=== PATIENT | female | born 1990 | race Caucasian/White ===

== ENCOUNTER → 2016-07-02 | Outpatient (CLI) | payer MEDICAID, OTHER ==
[~2016-07-02] MED LIST: BUPR150T9 PO; CEFP500T4 PO; SULF1TAB35 PO; TRIA16.5 NS
--- NOTE | 2016-07-02 17:22 | Diagnostic Imaging Report ---
INDICATION: Evaluation for size and dates. TECHNIQUE: Multiple real-time grayscale images were obtained of the gravid uterus. CORRELATION STUDY: None. FINDINGS: Cervical length is 5.1 cm and appears closed. Fetus is currently in a breech presentation. Normal amount of amniotic fluid. Placenta is anterior and without previa. Biometrical measurements are as follows: Biparietal diameter 3.54 cm, age 17 weeks 0 days. Head circumference 13.82 cm, age 17 weeks 2 days. Abdominal circumference 10.94 cm, age 16 weeks 6 days. Femur length 2.36 cm, age 17 weeks 1 day. Sonographic estimated age: 17 weeks 1 day. Sonographic estimated date of delivery: December 09, 2016. heart rate: 144 BPM Estimated Weight: 176 gm (+/- 26 gm) LMP Percentile: 61% IMPRESSION: 1. Single intrauterine in a breech presentation. Sonographic estimated age of 17 weeks 1 day for an estimated date of delivery of December 09, 2016. Dictated by: Dictated on workstation # [id number]
== END ==
LOC: RAD 13:25
PROVIDERS: ATTEND Family Medicine
DX: Z34.82 Encounter for supervision of other normal pregnancy, second trimester (principal)
CPT/HCPCS: 76805

== ENCOUNTER → 2016-08-20 | Outpatient (CLI) | payer MEDICAID ==
--- NOTE | 2016-08-20 15:01 | Diagnostic Imaging Report ---
INDICATION: anatomical survey. TECHNIQUE: Multiple real-time grayscale images were obtained over the gravid uterus. COMPARISON: 07/02/2016. FINDINGS: Transabdominal sonographic evaluation of the gravid uterus was performed. Single live intrauterine at 24 weeks 4 days by sonographic measurements. Appropriate interval growth. presentation is transverse. Normal amniotic fluid index. Grade 1 placenta is located anteriorly with no placenta previa. heart rate measures 147 beats per minute. There was limited visualization of the entire spine due to positioning. Recommend short-term sonographic followup. Otherwise, there is good visualization of the kidneys, bladder, stomach, brain, four-chamber heart, three-vessel cord and insertion, and extremities. gender is male. Biometrical measurements are as follows: Biparietal 5.9 cm, age 24 weeks 1 days. Head circumference 22.7 cm, age 24 weeks 6 days. Abdominal circumference 20.0 cm, age 24 weeks 5 days. Femur length 4.3 cm, age 24 weeks 2 days. Sonographic estimate age: 24 weeks 4 days. Sonographic estimated date of delivery: 12-06-16. Estimated Weight: 702 gm (+/- 103 gm). LMP percentile: 58%. heart rate: 147 beats per minute. number: 1 of 1. IMPRESSION: 1. Single live intrauterine at 24 weeks 4 days by today's sonographic measurements. 2. Incomplete evaluation of the spine due to positioning. Recommend short-term sonographic followup. 3. The remainder of the anatomical survey appears within normal limits. Dictated by: Dictated on workstation # [id number]
== END ==
LOC: RAD 12:41
PROVIDERS: ATTEND Family Medicine
DX: Z34.82 Encounter for supervision of other normal pregnancy, second trimester (principal)
CPT/HCPCS: 76805

== ENCOUNTER → 2016-09-21 | Outpatient (CLI) | payer MEDICAID ==
--- NOTE | 2016-09-21 18:11 | Diagnostic Imaging Report ---
INDICATION: patient, previous limited anatomical survey on prior ultrasound 08/20/2016. FINDINGS: On the previous study, spine was not well visualized. Patient now presents for followup. Images of the spine appear sonographically unremarkable. Study is otherwise limited. Amniotic fluid is normal at 15 cm. heart rate is 139 beats per minute. IMPRESSION: Study performed to followup previous incomplete evaluation of survey. On today's study, spine appears unremarkable. Dictated by: Dictated on workstation # [id number]
== END ==
LOC: RAD 13:44
PROVIDERS: ATTEND Family Medicine
DX: Z36 Encounter for antenatal screening of mother (principal); Z3A.00 Weeks of gestation of pregnancy not specified
CPT/HCPCS: 76816

== ENCOUNTER → 2017-03-16 | Outpatient (CLI) | payer MEDICAID ==
--- NOTE | 2017-03-16 14:13 | Diagnostic Imaging Report ---
INDICATION: Fall. 3 views were obtained. FINDINGS: The alignment of the wrist is normal. There is no fracture or dislocation. Soft tissues are unremarkable. IMPRESSION: No acute fracture or dislocation. Dictated by: Dictated on workstation # [id number]
--- NOTE | 2017-03-16 14:22 | Diagnostic Imaging Report ---
Patient History: LEFT ARM PAIN. Fall while skating. Technique: 3 views of the left elbow Comparison: None FINDINGS: There is a large left elbow joint effusion. While no definitive displaced fracture is seen, presence of effusion suspicious for an intra-articular fracture. Subtle cortical offset may be present at the radial head on the oblique view, and this may represent a fracture in question. Otherwise, alignment appears normal. There is mild soft tissue swelling about the left elbow. The joint spaces are preserved. IMPRESSION: 1. Large left elbow joint effusion, concerning for intra-articular fracture. Subtle cortical irregularity at the radial head may represent the fracture in question. Dictated by: Dictated on workstation # [id number]
== END ==
LOC: RAD 13:36
PROVIDERS: ATTEND Nurse Practitioner Family
DX: M25.422 Effusion, left elbow (principal); M79.602 Pain in left arm; W17.89XA Other fall from one level to another, initial encounter
CPT/HCPCS: 73080; 73110

== ENCOUNTER 2017-05-15 10:27 | Emergency (ER) | payer MEDICAID ==
[~2017-05-15] VITALS: Ht 170.2 cm; Wt 76.2 kg
[2017-05-15 11:07] LABS: BASOPHILS % (AUTO) 0 % (0-10); EOSINOPHILS # (AUTO) 0.1 10^3/uL (0.0-0.3); EOSINOPHILS % (AUTO) 1 % (0-10); HEMATOCRIT 40 % (35-52); HEMOGLOBIN 13.6 G/DL (11.5-16.0); LYMPHOCYTES # (AUTO) 1.5 X 10^3 (1.0-4.0); LYMPHOCYTES % (AUTO) 20 % (12-44); MEAN CORPUSCULAR HEMOGLOBIN 31 PG (25-34); MEAN CORPUSCULAR HGB CONC 34 G/DL (32-36); MEAN CORPUSCULAR VOLUME 90 FL (80-99); MEAN PLATELET VOLUME 9.6 FL (7.4-10.4); MONOCYTES # (AUTO) 0.5 X 10^3 (0.0-1.0); MONOCYTES % (AUTO) 6 % (0-12); NEUTROPHILS # (AUTO) 5.2 X 10^3 (1.8-7.8); NEUTROPHILS % (AUTO) 72 % (42-75); PLATELET COUNT 270 10^3/uL (130-400); RED BLOOD COUNT 4.43 10^6/uL (4.35-5.85); RED CELL DISTRIBUTION WIDTH 12.8 % (10.0-14.5); WHITE BLOOD COUNT 7.2 10^3/uL (4.3-11.0)
--- NOTE | 2017-05-15 11:11 | ED Cardiac General ---
History of Present Illness General Chief Complaint: Chest Pain Stated Complaint: CP/SOB Nursing Triage Note: ARRIVED VIA AMB TO ROOM 04. COMPLAINS OF CHEST PAIN, PALPITAIONS, SOA FOR SEVERAL WEEKS ON AND OFF. DENIES ANXIETY. STATES IT STARTED WHEN SHE STARTED TAKING A MED TO INCREASE MILK PRODUCTION THAT SHE PROMPTLY STOPPED. VAGINAL 5 MONTHS AGO. Source: patient Exam Limitations: no limitations History of Present Illness Date Seen by Provider: May 15, 2017 Time Seen by Provider: 11:09 Initial Comments To ER with reports of intermittent chest heaviness, palpitations, shortness of breath, dizziness for about 2 weeks. This began after she started taking domperidone to increase milk production to breast-feed her 5-month-old. She promptly stopped medication when she noticed the side effects but the symptoms persist. They are not as intense as they initially were but last night he seemed to get worse. She's never had this before. Severity: moderate Prior CP/Workup: no prior chest pain NTG SL RATING OFFICER: No ASA po RATING OFFICER: No Allergies and Home Medications Allergies Coded Allergies: Penicillins (Unverified Allergy, Unknown, 04/29/15) Patient Home Medication List Home Medication List Reviewed: Yes Review of Systems Constitutional: see HPI EENTM: No Symptoms Reported Respiratory: No Symptoms Reported Cardiovascular: No Symptoms Reported Gastrointestinal: See HPI, Abdominal Pain Genitourinary: No Symptoms Reported Musculoskeletal: see HPI Skin: no symptoms reported Psychiatric/Neurological: No Symptoms Reported Endocrine: No Symptoms Reported Hematologic/Lymphatic: No Symptoms Reported Past Hsgpour-Rklqbu-Houkgk Hx Patient Social History Alcohol Use: Denies Use Recreational Drug Use: No Smoking Status: Never a Smoker Recent Foreign Travel: No Contact w/Someone Who Travel: No Recent Infectious Disease Expo: No Immunizations Up To Date Tetanus Booster (TDap): More than 5yrs PED Vaccines UTD: Yes Surgeries History of Surgeries: No Respiratory History of Respiratory Disorde: No Cardiovascular History of Cardiac Disorders: No Neurological History of Neurological Disord: No Reproductive System Hx Reproductive Disorders: No Sexually Transmitted Disease: No HIV/AIDS: No Female Reproductive Disorders: Denies Genitourinary History of Genitourinary Disor: No Gastrointestinal History of Gastrointestinal Di: No Musculoskeletal History of Musculoskeletal Dis: No Endocrine History of Endocrine Disorders: No HEENT History of HEENT Disorders: No Cancer History of Cancer: No Did You Recieve Any Treatments: No Psychosocial History of Psychiatric Problem: Yes Behavioral Health Disorders: Depression Integumentary History of Skin or Integumenta: No Blood Transfusions History of Blood Disorders: No Adverse Reaction to a Blood Tr: No Physical Exam Vital Signs Vital Signs - First Documented 05/15/17 10:30 Temp 98.0 Pulse 106 Resp 18 B/P (MAP) 142/91 (108) Pulse Ox 100 Capillary Refill : Less Than 3 Seconds General Appearance: No Apparent Distress, WD/WN HEENT: PERRL/EOMI, TMs Normal Neck: Full Range of Motion, Normal Inspection Respiratory: No Accessory Muscle Use, No Respiratory Distress Cardiovascular: Regular Rate, Rhythm, Normal Peripheral Pulses Gastrointestinal: Normal Bowel Sounds, Non Tender, Soft Extremity: Normal Capillary Refill, Normal Inspection Neurologic/Psychiatric: Alert, Oriented x3, No Motor/Sensory Deficits Skin: Normal Color, Warm/Dry Other comments EKG shows normal sinus rhythm at 92 without ectopy, normal intervals, no ST segment changes. Progress/Results/Core Measures Results/Orders Lab Results Laboratory Tests Test 05/15/17 10:45 05/15/17 11:05 05/15/17 11:25 Range/Units White Blood Count 7.2 4.3-11.0 10^3/uL Red Blood Count 4.43 4.35-5.85 10^6/uL Hemoglobin 13.6 11.5-16.0 G/DL Hematocrit 40 35-52 % Mean Corpuscular Volume 90 80-99 FL Mean Corpuscular Hemoglobin 31 25-34 PG Mean Corpuscular Hemoglobin Concent 34 32-36 G/DL Red Cell Distribution Width 12.8 10.0-14.5 % Platelet Count 270 130-400 10^3/uL Mean Platelet Volume 9.6 7.4-10.4 FL Neutrophils (%) (Auto) 72 42-75 % Lymphocytes (%) (Auto) 20 12-44 % Monocytes (%) (Auto) 6 0-12 % Eosinophils (%) (Auto) 1 0-10 % Basophils (%) (Auto) 0 0-10 % Neutrophils # (Auto) 5.2 1.8-7.8 X 10^3 Lymphocytes # (Auto) 1.5 1.0-4.0 X 10^3 Monocytes # (Auto) 0.5 0.0-1.0 X 10^3 Eosinophils # (Auto) 0.1 0.0-0.3 10^3/uL Basophils # (Auto) 0.0 0.0-0.1 10^3/uL Sodium Level 141 135-145 MMOL/L Potassium Level 4.0 3.6-5.0 MMOL/L Chloride Level 106 98-107 MMOL/L Carbon Dioxide Level 28 21-32 MMOL/L Anion Gap 7 5-14 MMOL/L Blood Urea Nitrogen 9 7-18 MG/DL Creatinine 0.85 0.60-1.30 MG/DL Estimat Glomerular Filtration Rate > 60 BUN/Creatinine Ratio 11 Glucose Level 81 70-105 MG/DL Calcium Level 9.9 8.5-10.1 MG/DL Total Bilirubin 1.0 0.1-1.0 MG/DL Aspartate Amino Transf (AST/SGOT) 21 5-34 U/L Alanine Aminotransferase (ALT/SGPT) 29 0-55 U/L Alkaline Phosphatase 64 40-136 U/L Total Protein 8.5 H 6.4-8.2 GM/DL Albumin 4.9 H 3.2-4.5 GM/DL Thyroid Stimulating Hormone (TSH) 1.75 0.35-4.94 UIU/ML Free Thyroxine 1.10 0.70-1.48 NG/DL D-Dimer < 0.27 0.00-0.49 UG/ML Urine Color YELLOW Urine Clarity CLEAR Urine pH 8 5-9 Urine Specific [place] 1.010 L 1.016-1.022 Urine Protein NEGATIVE NEGATIVE Urine Glucose (UA) NEGATIVE NEGATIVE Urine Ketones NEGATIVE NEGATIVE Urine Nitrite NEGATIVE NEGATIVE Urine Bilirubin NEGATIVE NEGATIVE Urine Urobilinogen NORMAL NORMAL MG/DL Urine Leukocyte Esterase NEGATIVE NEGATIVE Urine RBC (Auto) NEGATIVE NEGATIVE Urine RBC NONE /HPF Urine WBC RARE /HPF Urine Squamous Epithelial Cells 2-5 /HPF Urine Crystals NONE /LPF Urine Bacteria NEGATIVE /HPF Urine Casts NONE /LPF Urine Mucus NEGATIVE /LPF Urine Culture Indicated NO Urine Opiates Screen NEGATIVE NEGATIVE Urine Oxycodone Screen NEGATIVE NEGATIVE Urine Methadone Screen NEGATIVE NEGATIVE Urine Propoxyphene Screen NEGATIVE NEGATIVE Urine Barbiturates Screen NEGATIVE NEGATIVE Ur Tricyclic Antidepressants Screen NEGATIVE NEGATIVE Urine Phencyclidine Screen NEGATIVE NEGATIVE Urine Amphetamines Screen NEGATIVE NEGATIVE Urine Methamphetamines Screen NEGATIVE NEGATIVE Urine Benzodiazepines Screen NEGATIVE NEGATIVE Urine Cocaine Screen NEGATIVE NEGATIVE Urine Cannabinoids Screen NEGATIVE NEGATIVE My Orders Orders - MINISTERIO REZA BACK PADDER Cbc With Automated Diff (05/15/17 11:00) Comprehensive Metabolic Panel (05/15/17 11:00) Continuous Ekg Monitoring (05/15/17 11:00) Fibrin Degradation Products (05/15/17 11:00) Chest Pa/Lat (2 View) (05/15/17 11:00) Ua Culture If Indicated (05/15/17 11:00) Drug Screen Stat (Urine) (05/15/17 11:00) Thyroid Stimulating Hormone (05/15/17 11:00) Free T4 (Free Thyroxine) (05/15/17 11:00) Vital Signs/I&O Vital Sign - Last 12Hours 05/15/17 10:30 Temp 98.0 Pulse 106 Resp 18 B/P (MAP) 142/91 (108) Pulse Ox 100 Blood Pressure Mean: 108 Departure Communication (Admissions) Progress Notes I will give the patient an order for outpatient Holter monitor Impression Impression: Primary Impression: Palpitations Disposition: 01 HOME, SELF-CARE Condition: Stable Departure-Patient Inst. Decision time for Depature: 12:22 Referrals: CANDE IQBAL MD (PCP/Family) Primary Care Physician Patient Instructions: Palpitations Add. Discharge Instructions: 1. Go to outpatient registration to register to get the Holter monitor applied and they will directly on where to go to get the Holter monitor. 2. Follow-up with your doctor next week 3. Return to ER for any concerns All discharge instructions reviewed with patient and/or family. Voiced understanding. Copy Copies To 1: CANDE IQBAL MD, PETER J APRN May 15, 2017 11:11
[2017-05-15 11:22] LABS: ALANINE AMINOTRANSFERASE 29 U/L (0-55); ALBUMIN 4.9 GM/DL (3.2-4.5); ALKALINE PHOSPHATASE 64 U/L (40-136); BUN/CREATININE RATIO 11; CALCIUM 9.9 MG/DL (8.5-10.1); CARBON DIOXIDE 28 MMOL/L (21-32); CHLORIDE 106 MMOL/L (98-107); CREATININE SERUM 0.85 MG/DL (0.60-1.30); GFR ESTIMATED > 60; GLUCOSE 81 MG/DL (70-105); SODIUM 141 MMOL/L (135-145); TOTAL PROTEIN 8.5 GM/DL (6.4-8.2)
[2017-05-15 11:34] LABS: BILIRUBIN,URINE NEGATIVE (NEGATIVE); CLARITY,URINE CLEAR; COLOR,URINE YELLOW; GLUCOSE, URINE (UA) NEGATIVE (NEGATIVE); KETONES,URINE NEGATIVE (NEGATIVE); LEUKOCYTE ESTERASE ,URINE NEGATIVE (NEGATIVE); NITRITE,URINE NEGATIVE (NEGATIVE); PH,URINE 8 (5-9); PROTEIN,URINE NEGATIVE (NEGATIVE); UROBILINOGEN,URINE NORMAL (NORMAL)
--- NOTE | 2017-05-15 11:43 | Diagnostic Imaging Report ---
INDICATION: Chest pain and palpitations. TIME OF EXAM: 11:52 a.m. COMPARISON: No prior studies are available for comparison. FINDINGS: The heart size is normal. The pulmonary vascularity is unremarkable. The lungs are clear. No infiltrate, effusion or pneumothorax is detected. IMPRESSION: No acute cardiopulmonary process is detected. Dictated by: Dictated on workstation # [id number]
[2017-05-15 11:45] LABS: AMPHETAMINE SCREEN, URINE NEGATIVE (NEGATIVE); BACTERIA,URINE NEGATIVE /HPF; BARBITURATE SCREEN URINE NEGATIVE (NEGATIVE); BENZODIAZEPINES SCREEN URINE NEGATIVE (NEGATIVE); CANNABINOID SCREEN, URINE NEGATIVE (NEGATIVE); COCAINE SCREEN URINE NEGATIVE (NEGATIVE); METHADONE STAT NEGATIVE (NEGATIVE); METHAMPHETAMINE SCREEN URINE S NEGATIVE (NEGATIVE); OPIATE SCREEN URINE NEGATIVE (NEGATIVE); OXYCODONE STAT NEGATIVE (NEGATIVE); PROPOXYPHENE STAT NEGATIVE (NEGATIVE); TRICYCLIC ANTIDEPRESSANTS SCRE NEGATIVE (NEGATIVE); WBC,URINE RARE /HPF
[2017-05-15 12:32] VITALS: BP 110/73
== END 2017-05-15 12:32 | disposition home or self-care (01) ==
LOC: EDUNIT# 10:27 → ER 10:28
DX: R00.2 Palpitations (principal); F32.9 Major depressive disorder, single episode, unspecified; Z88.0 Allergy status to penicillin
CPT/HCPCS: 36415; 71046; 80053; 80306; 81000; 84439; 84443; 84703; 85025; 85379; 93005

== ENCOUNTER 2017-05-15 12:53 | Outpatient (RCR) | payer MEDICAID | END 2017-08-13 | disposition home or self-care (01) | LOC: CARD 12:53 | PROVIDERS: ATTEND Nurse Practitioner Family | DX: R00.2 Palpitations (principal) ==

== ENCOUNTER → 2019-08-25 | Outpatient (CLI) | payer MEDICAID ==
--- NOTE | 2019-08-25 16:17 | Diagnostic Imaging Report ---
INDICATION: Leg pain EXAM: Noninvasive study performed including ankle-brachial indices and segmental pressures. FINDINGS: Ankle-brachial indices were 1.13 on the right for posterior tibial and 1.01 for dorsalis pedis. The left, the indices were 1.13 for posterior tibial artery and 1.16 for dorsalis pedis. Segmental pressures showed symmetric waveforms. IMPRESSION: Normal study with no significant decrease in ankle-brachial indices. Dictated by: Dictated on workstation # [id number]
== END ==
LOC: RAD 13:24
PROVIDERS: ATTEND Family Medicine
DX: M79.604 Pain in right leg (principal); M79.605 Pain in left leg
CPT/HCPCS: 93922

== ENCOUNTER → 2020-03-25 | Outpatient (CLI) | payer MEDICAID ==
--- NOTE | 2020-03-28 08:10 | Diagnostic Imaging Report ---
INDICATION: anatomy survey and twin . TECHNIQUE: Multiple real-time grayscale images were obtained over the gravid uterus. COMPARISON: None available FINDINGS: The cervix measures approximately 4.4 cm in length. Twin gestation is noted with a membrane between the fetuses. The placenta is posteriorly positioned. Fetus A Biometrical measurements are as follows: Biparietal 4.57 cm, age 19 weeks 6 days. Head circumference 16.96 cm, age 19 weeks 5 days. Abdominal circumference 14.51 cm, age 19 weeks 6 days. Femur length 3.37 cm, age 20 weeks 4 days. Sonographic estimate age: 20 weeks 0 days. Sonographic estimated date of delivery: 08/12/20. Estimated Weight: 332 gm (+/- 49 gm). LMP percentile: 60%. heart rate: 169 beats per minute. number: 1 of 2. Fetus is in breech presentation and located on maternal left. The anatomy survey for baby A shows the following structures are normal: Stomach, urinary bladder, three-vessel cord, kidneys, umbilical cord insertion, four-chamber heart, spine and intracranial structures. Extremities are grossly normal. Fetus B Biometrical measurements are as follows: Biparietal 4.77 cm, age 20 weeks 3 days. Head circumference 17.84 cm, age 20 weeks 3 days. Abdominal circumference 14.17 cm, age 19 weeks 4 days. Femur length 3.22 cm, age 20 weeks 1 days. Sonographic estimate age: 20 weeks 1 days. Sonographic estimated date of delivery: 08/11/2020. Estimated Weight: 316 gm (+/- 46 gm). LMP percentile: 44%. heart rate: 135 beats per minute. number: 2 of 2. Fetus B is in cephalic presentation located to maternal right. The anatomy survey for baby B shows the following structures are normal: Stomach, urinary bladder, three-vessel cord, umbilical cord insertion, kidneys, intracranial structures, four-chamber heart, spine and extremities. IMPRESSION: 1. Live twin gestation with both fetuses having normal anatomy survey. 2. The fetuses are symmetric in size. Dictated by: Dictated on workstation # [id number]
== END ==
LOC: RAD 14:34
PROVIDERS: ATTEND Obstetrics & Gynecology
DX: O30.041 Twin pregnancy, dichorionic/diamniotic, first trimester (principal); Z3A.20 20 weeks gestation of pregnancy
CPT/HCPCS: 76805; 76810

== ENCOUNTER → 2020-07-05 | Outpatient (CLI) | payer MEDICAID | LOC: CARD 13:00 | PROVIDERS: ATTEND Internal Medicine Cardiovascular Disease | DX: O30.003 Twin pregnancy, unspecified number of placenta and unspecified number of amniotic sacs, third trimester (principal); O26.893 Other specified pregnancy related conditions, third trimester; R00.2 Palpitations; Z3A.34 34 weeks gestation of pregnancy | CPT/HCPCS: 93225; 93226; 93306 ==

== ENCOUNTER 2020-07-22 05:39 | Outpatient (CLI) | payer MEDICAID ==
[~2020-07-22] VITALS: Ht 167.7 cm; Wt 90.5 kg
[2020-07-22] MEDS ORDERED: PNV1TABL9 PO (10:20)
[2020-07-22] MEDS ORDERED: NF-VITD400 PO (10:20)
== END 2020-07-22 10:32 | disposition home or self-care (01) ==
LOC: PREOP 05:39
PROVIDERS: ATTEND Obstetrics & Gynecology
DX: Z01.818 Encounter for other preprocedural examination (principal)

== ENCOUNTER 2020-07-25 07:14 | Inpatient (IN) | payer MEDICAID ==
[2020-07-25] VITALS (8 sets, daily range): BP systolic 96–121; BP diastolic 54–75
[~2020-07-25 07:14] MED LIST changes: +NF-VITD400 PO; +PNV1TABL9 PO
[2020-07-25] MEDS ORDERED: LACTATED RINGERS 1,000 ML IV ONE (07:44)
[2020-07-25] MEDS ORDERED: LACTATED RINGERS 1,000 ML IV SCH ×2 (08:00)
[2020-07-25] MEDS ORDERED: CITRIC ACID/SOB CIT (BICITRA) 30 ML UDC PO ONE (08:00)
[2020-07-25] MEDS ORDERED: ceFAZolin 2 GM IV Premixed 50 ML IV ONE (08:00)
[2020-07-25] MEDS ORDERED: METOCLOPRAMIDE INJ 10 MG/2 ML (REGLAN) IV ONE (08:00)
[2020-07-25] MEDS ORDERED: FAMOTIDINE 20MG/2ML IV (PEPCID) IV ONE (08:00)
[2020-07-25 08:16] LABS: BASOPHILS % (AUTO) 0 % (0-10); EOSINOPHILS % (AUTO) 0 % (0-10); HEMATOCRIT 36 % (35-52); HEMOGLOBIN 12.7 g/dL (11.5-16.0); LYMPHOCYTES # (AUTO) 1.2 10^3/uL (1.0-4.0); LYMPHOCYTES % (AUTO) 14 % (12-44); MEAN CORPUSCULAR HEMOGLOBIN 34 pg (25-34); MEAN CORPUSCULAR HGB CONC 35 g/dL (32-36); MEAN CORPUSCULAR VOLUME 97 fL (80-99); MEAN PLATELET VOLUME 10.6 fL (9.0-12.2); MONOCYTES # (AUTO) 0.5 10^3/uL (0.0-1.0); MONOCYTES % (AUTO) 6 % (0-12); NEUTROPHILS # (AUTO) 6.7 10^3/uL (1.8-7.8); NEUTROPHILS % (AUTO) 79 % (42-75); PLATELET COUNT 137 10^3/uL (130-400); WHITE BLOOD COUNT 8.5 10^3/uL (4.3-11.0)
--- NOTE | 2020-07-25 08:23 | History & Physical-OB ---
OB - Chief Complaint & HPI Date/Time Date of Admission: Date of Admission: July 25, 2020 at 07:14 Date seen by a Provider: July 25, 2020 Time Seen by a Provider: 08:00 Chief Complaint/History OB-Reason for Admission/Chief: Section Hx : 4 Hx Para: 2 Expected Date of Delivery: Aug 13, 2020 Indication for : malpresentation Admission Nurse Assessment Rev: Yes History of Labs AB pos Antibody neg RI RPR NR HIV NR HBsAg NR GC neg GBS neg Allergies and Home Medications Allergies Coded Allergies: Penicillins (Unverified Allergy, Unknown, 04/29/15) Home Medications Pnv Cmb#21/Iron/Folic Acid 1 Each Tablet, 1 EACH PO DAILY, (Reported) Vitamin D 10 Mcg Tablet, 400 MCG PO DAILY, (Reported) Patient Home Medication List Home Medication List Reviewed: Yes OB - History Hx of Present Care: Yes Ultrasounds: Normal mid trimester US Obstetrical Complications: None Medical Complications: None Delivery History Hx Blood Disorders: No Adverse Rxn to Tranfusion: No Patient Past Medical History n/a Social History/Family History 2nd Hand Smoke Exposure: No Immunizations Hepatitis A: No Hepatitis B: No Tetanus Booster (TDap): More than 5yrs OB - Admission Exam Physical Exam HEENT: NCAT Heart: Rhythm Normal Lungs: Clear Abdomen: Gravid Extremities: Normal Reflexes: Normal Heart Rate: 130's Accelerations: Accelerations Present Decelerations: No Decelerations Short Term Variability: Present 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
[2020-07-25] MEDS ORDERED: OXYTOCIN PRE-MIX DRIP 500 ML IV ONE (08:26)
[2020-07-25] MEDS ORDERED: fentaNYL INJ 100 MCG/2 ML AMP ONE (08:26)
[2020-07-25] MEDS ORDERED: TETANUS,DIPTH,PERTUSS P/F (BOOSTRIX) 0.5 ML VIAL IM SCH (08:30)
[2020-07-25] MEDS ORDERED: OXYTOCIN PRE-MIX DRIP 500 ML IV SCH (08:30)
[2020-07-25] MEDS ORDERED: ONDANSETRON 4 MG/2 ML (SDV) Z0FRAN IVP PRN ×2 (08:30→11:00)
[2020-07-25] MEDS ORDERED: MEASLES,MUMPS,RUBELLA 1 EA INJ SC SCH (08:30)
[2020-07-25] MEDS ORDERED: BUPIVACAINE 0.5% 30 ML (SENSORCAINE) VIAL ONE ×2 (09:12→10:05)
[2020-07-25] MEDS ORDERED: LIDOCAINE 1% INJ 20 ML 20 ML VIAL ONE (09:12)
[2020-07-25] MEDS ORDERED: PHENYLEPHRINE 100 MCG/ML 10 ML (ANESTHESIA) SYR ONE (10:08)
[2020-07-25] MEDS: KETOROLAC 30 MG/ML VIAL IV SCH ×3 (10:21→22:48)
[2020-07-25] MEDS ORDERED: HYDROmorphone 2 MG/ML VIAL (DILAUDID) IV ONE (11:00)
[2020-07-25] MEDS ORDERED: morphine INJ 10 MG/ML 1ML (SYR OR VIAL) IVP ONE (11:00)
[2020-07-25] MEDS: HYDROcodone/APAP 5 MG/325 MG (LORTAB) TAB PO PRN ×3 (13:33→22:55)
[2020-07-25] MEDS ORDERED: CATHETER FLUSH 10 ML SYR IV SCH (14:00)
--- NOTE | 2020-07-25 17:06 | OPERATIVE REPORT ---
DATE OF SERVICE: PREOPERATIVE DIAGNOSES: 1. A 30-year-old G4, P2 at 37 weeks and 2 days gestation. 2. Malpresentation of di-di twin gestation. POSTOPERATIVE DIAGNOSES: 1. A 30-year-old G4, P2 at 37 weeks and 2 days gestation. 2. Malpresentation of di-di twin gestation. PROCEDURE PERFORMED: Primary low transverse section. SURGEON: Hayder Contreras DO. ANESTHESIA: Spinal. ESTIMATED BLOOD LOSS: 800 mL. URINE OUTPUT: 150 mL clear at the end of the procedure. FLUIDS: 1500 mL of lactated Ringer's solution. FINDINGS: Two live female infants, baby A, Apgars of 8 and 8 and weight of 6 pounds 8 ounces. Baby B, Apgars of 7 and 9, weight of 6 pounds 4 ounces. Baby A was in the oblique presentation on maternal right hip. Baby B was left transverse spine down. Grossly normal appearing uterus, bilateral fallopian tubes and ovaries. SPECIMEN SENT: Placenta. INDICATIONS FOR PROCEDURE: This 30-year-old female is a patient, who had sought care in my office, it was uncomplicated with the exception of diamniotic dichorionic twin gestation. Throughout her , we discussed vaginal delivery if vertex presentation was noted; however, at the end of the , there were changes in the position including last week where baby A was breech. I discussed with the patient proceeding with primary , which was scheduled for 37 weeks due to increased risk of preeclampsia and hemorrhage as 39 weeks approached. Therefore, we scheduled for 37 weeks. Risks of primary was reviewed with the patient and her preoperative appointment including risk of bleeding, infection, damage to surrounding structures including, but not limited to bowel, bladder, or kidneys, possible need for reoperation, postoperative complications that may occur, and recovery timeframe from the procedure, hospital stay, risk from anesthesia and even . After everything was discussed with the patient in detail, consent was obtained in the preoperative area, the patient was taken to the operating room. OPERATIVE REPORT IN DETAIL: Once in the operating room and spinal analgesia was found to be adequate, she was placed in a supine position with leftward tilt and prepped and draped in a normal sterile fashion. A timeout was performed and anesthesia was tested. There was some incomplete block of the spinal and therefore a mix of 50% 0.25% Marcaine and 50% 2% lidocaine was injected along the skin margins of the fascia on the right side of the incision to control the pain during the procedure, after which anesthesia was found to be adequate. A timeout was performed. A Pfannenstiel skin incision was then made with a knife and carried down to underlying fascia using Bovie cautery. The fascial incision was extended laterally using Bovie cautery. Superior aspect of the fascial incision was then grasped with Aissatou clamps, tented upward and dissected off the underlying rectus muscles. The inferior aspect of the fascial incision was then grasped with Aissatou clamps, tented up and dissected off the underlying rectus muscles. Rectus muscles were then dissected down the midline using Pritchett scissors, which exposed the peritoneum, which I entered bluntly and extended using blunt traction. Otoniel ring retractor was placed in the peritoneal incision, which offers excellent lateral sidewall retraction. I identified the lower uterine segment, which was found to be thinned out. I made a low transverse incision to the vesicouterine peritoneum and bluntly dissected off the lower uterine segment, creating a bladder flap. I then proceeded with my myotomy until membranes were visualized, at which point, I extended uterine incision laterally and superiorly using bandage scissors. Amniotomy was performed using Allis clamp. Clear fluid was noted on fetus A, which was found in the right oblique presentation, head is elevated up the incision where it delivered incision. Nares and oropharynx were bulb suctioned. Anterior and posterior shoulders were delivered. The was then brought on to the operative field. Cord was doubly clamped and cut and was handed off to , who was present for delivery. Cord from fetus A was marked with a single cord clamp. I then performed amniotomy on the second membrane, clear fluid was noted from this membrane as well. The was found in the left transverse presentation. I brought in the head down to the pelvis where it delivered through the incision. Nares and oropharynx were bulb suctioned. Anterior and posterior shoulders were delivered. Infant was then brought to the operative field. The cord was doubly clamped and cut and was handed off to Dr. Estrada, who was present for delivery. This cord was marked with two cord clamps. The placenta was then removed as a whole and sent to pathology for permanent section. The uterus was then exteriorized and cleared of all endometrial clots and debris and Pitocin was initiated to facilitate uterine contraction. Uterine fundus became firmer by manual massage. I then proceeded with closing the uterine incision using 0 Vicryl suture in a running locked fashion. Second layer of imbricating 0 Monocryl was placed. Excellent hemostasis was noted after doing this. I then placed the uterus back in the pelvis and copiously irrigated the pelvis using normal saline. Once again, there was no active bleeding noted from any of my dissection planes. I placed Interceed antiadhesive over my low transverse incision. I removed the Otoniel ring retractor and proceeded with closing the peritoneum using 3-0 Vicryl suture in running fashion. Rectus muscles were reapproximated using 3-0 Vicryl suture in an interrupted fashion. The fascia was reapproximated using 0 Vicryl suture in running fashion. Subcutaneous tissue was reapproximated using 3-0 plain interrupted subcutaneous tissue and skin reapproximated using 4-0 Monocryl running subcuticular. Dermabond was applied to the incision and sterile dressing with adhesive white tape. The patient tolerated the procedure well and sent to recovery area in stable condition. Lap and sponge counts were correct at the end of the procedure. Instrument counts correct as well. Two grams of Ancef given preoperatively for infection prophylaxis. Job ID: [id number] DocumentID: [id number] Dictated Date: 07/25/2020 10:03:51 Wrist Liner Date: 07/25/2020 17:05:09 Dictated By: DO ADOLFO HYMAN
[2020-07-25] MEDS: DOCUSATE SODIUM 100 MG (COLACE) CAP PO SCH (19:53)
[2020-07-26] VITALS: BP 97/55
[2020-07-26] MEDS: KETOROLAC 30 MG/ML VIAL IV SCH (04:21)
[2020-07-26 04:22] VITALS: BP 101/54
[2020-07-26] MEDS: HYDROcodone/APAP 5 MG/325 MG (LORTAB) TAB PO PRN ×4 (04:22→20:23)
[2020-07-26 06:09] LABS: BASOPHILS % (AUTO) 0 % (0-10); EOSINOPHILS % (AUTO) 0 % (0-10); HEMATOCRIT 26 % (35-52); HEMOGLOBIN 9.1 g/dL (11.5-16.0); LYMPHOCYTES # (AUTO) 1.2 10^3/uL (1.0-4.0); LYMPHOCYTES % (AUTO) 12 % (12-44); MEAN CORPUSCULAR HEMOGLOBIN 35 pg (25-34); MEAN CORPUSCULAR HGB CONC 35 g/dL (32-36); MEAN CORPUSCULAR VOLUME 99 fL (80-99); MEAN PLATELET VOLUME 10.8 fL (9.0-12.2); MONOCYTES # (AUTO) 0.6 10^3/uL (0.0-1.0); MONOCYTES % (AUTO) 6 % (0-12); NEUTROPHILS # (AUTO) 8.5 10^3/uL (1.8-7.8); NEUTROPHILS % (AUTO) 81 % (42-75); PLATELET COUNT 115 10^3/uL (130-400); WHITE BLOOD COUNT 10.5 10^3/uL (4.3-11.0)
[2020-07-26] MEDS ORDERED: HYDROmorphone 2 MG/ML VIAL (DILAUDID) IV ONE (07:15)
[2020-07-26 08:00] VITALS: BP 98/57
--- NOTE | 2020-07-26 08:06 | Postpartum Progress Note ---
Note Note Day # 1 Subjective: Patient is without complaints. Ambulating, voiding. Tolerating a regular diet without nausea or vomiting. Normal lochia. Pain is well controlled with oral pain medications. Objective: Physical Exam: General - Alert and oriented, no apparent distress Abdomen - Soft, appropriately tender to palpation, non-distended, fundus firm at umbilicus Extremities - no edema, negative Enio's bilaterally Incision- c/d/i Assessment: POD 1 PLTCS Acute blood loss anemia Plan: Routine care. Encourage breast feeding. Encourage ambulation. Ferrous sulfate supplementation. Plan for discharge tomorrow Vitals - Labs Vital Signs - I&O Vital Signs Date Time Temp Pulse Resp B/P (MAP) Pulse Ox O2 Delivery O2 Flow Rate FiO2 07/26/20 04:22 36.8 86 20 101/54 (70) 96 Room Air 07/26/20 00:00 36.5 90 20 97/55 (69) 97 Room Air 07/25/20 20:00 36.5 90 18 107/65 (79) 97 Room Air 07/25/20 16:00 36.5 95 18 107/61 (76) 98 Room Air 07/25/20 13:30 37.0 82 16 113/54 (73) 97 Room Air 07/25/20 11:01 Room Air 07/25/20 11:01 36.7 16 99/63 (75) 98 Room Air 07/25/20 11:01 36.7 76 16 99/63 (75) 98 Room Air 07/25/20 10:43 36.6 16 102/70 (81) 100 Room Air 07/25/20 10:43 Room Air 07/25/20 10:26 Room Air 07/25/20 10:26 36.6 16 96/58 (71) 100 Room Air 07/25/20 10:05 36.8 16 110/69 (83) 100 Room Air 07/25/20 10:05 Room Air I & O 07/26/20 07:00 Intake Total 4050 ml Output Total 2600 ml Balance 1450 ml Labs Laboratory Tests 07/26/20 05:37: White Blood Count 10.5, Red Blood Count 2.63L, Hemoglobin 9.1#L, Hematocrit 26L, Mean Corpuscular Volume 99, Mean Corpuscular Hemoglobin 35H, Mean Corpuscular Hemoglobin Concent 35, Red Cell Distribution Width 13.3, Platelet Count 115L, Mean Platelet Volume 10.8, Immature Granulocyte % (Auto) 1, Neutrophils (%) (Auto) 81H, Lymphocytes (%) (Auto) 12, Monocytes (%) (Auto) 6, Eosinophils (%) (Auto) 0, Basophils (%) (Auto) 0, Neutrophils # (Auto) 8.5H, Lymphocytes # (Auto) 1.2, Monocytes # (Auto) 0.6, Eosinophils # (Auto) 0.0, Basophils # (Auto) 0.0, Immature Granulocyte # (Auto) 0.1, Percent Immature Platelet Fraction 5.1 MANDY MUNGUIA DO July 26, 2020 08:06
[2020-07-26] MEDS: DOCUSATE SODIUM 100 MG (COLACE) CAP PO SCH ×2 (08:07→20:23)
--- NOTE | 2020-07-26 08:07 | Discharge Inst-Women's Service ---
Discharge Inst-Women's Serv Depart Medication/Instructions New, Converted or Re-Newed RX: RX on Chart Final Diagnosis POD 2 PLTCS Problems Reviewed?: Yes Consults/Follow Up Additional Follow Up: Yes Orders/Referrals Dr. Contreras in 7-10 days and in 6 weeks Activity Activity: Activity as Tolerated Driving Instructions: No Driving for 1 Week NO SMOKING: NO SMOKING Nothing Inside Vagina: No Douching, No [place], No Tampons Diet Discharge Diet: No Restrictions Symptoms to Report to : Bleeding Excessive, Pain Increased, Fever Over 101 Degrees F, Vaginal Bleeding Increase, Questions/Concerns For Any Problems or Questions: Contact Your Physician Skin/Wound Care Infection Signs and Symptoms: Increased Redness, Foul Odor of Wound, Increased Drainage, Skin Itchy or Has a Rash, Increased Swelling, Temperature Above 101 F Operative Area Clean and Dry: Keep Incision Clean/Dry Stitches/Ridgeway/Dermabond: Dermabond, Care of Stitches Bathing Instructions: MANDY Pham DO July 26, 2020 08:07
[2020-07-26] MEDS ORDERED: DCS100C PO (08:08)
[2020-07-26] MEDS ORDERED: IBUP-844 PO (08:08)
[2020-07-26] MEDS ORDERED: ACHD5005 PO (08:08)
--- NOTE | 2020-07-26 09:30 | Anesthesia-Regional Post-Op ---
Regional Patient Condition Mental Status: Alert, Oriented x3 Circulation: Same as Pre-Op Headache: Absent Sensation: Full Recovery Motor Block: Absent Post Op Complications Complications None Follow Up Care/Instructions Patient Instructions None needed. Anesthesia/Patient Condition Patient is doing well, no complaints, stable vital signs, no apparent adverse anesthesia problems. MAYTE TINOCO DO July 26, 2020 09:30
[2020-07-26] MEDS: IBUPROFEN 600 MG (MOTRIN) TAB PO SCH ×3 (10:05→22:23)
[2020-07-26 14:00] VITALS: BP 114/52
[2020-07-26 20:21] VITALS: BP 100/56
[2020-07-26] MEDS ORDERED: SIMETHICONE 80 MG (MYLICON) CHEW PO ONE (22:30)
[2020-07-27 02:00] VITALS: BP 102/55
[2020-07-27] MEDS: HYDROcodone/APAP 5 MG/325 MG (LORTAB) TAB PO PRN ×2 (03:55→13:47)
[2020-07-27] MEDS: IBUPROFEN 600 MG (MOTRIN) TAB PO SCH ×2 (03:56→10:29)
[2020-07-27 08:00] VITALS: BP 116/70
--- NOTE | 2020-07-27 08:24 | Postpartum Progress Note ---
Note Note Day # 2 Subjective: Patient is without complaints. Ambulating, voiding. Tolerating a regular diet without nausea or vomiting. Normal lochia. Pain is well controlled with oral pain medications. Objective: Physical Exam: General - Alert and oriented, no apparent distress Abdomen - Soft, appropriately tender to palpation, non-distended, fundus firm at umbilicus Extremities - no edema, negative Enio's bilaterally Incision- c/d/i Assessment: POD 2 PLTCS Acute blood loss anemia Plan: Routine care. Encourage breast feeding. Encourage ambulation. Ferrous sulfate supplementation. Plan for discharge today Vitals - Labs Vital Signs - I&O Vital Signs Date Time Temp Pulse Resp B/P (MAP) Pulse Ox O2 Delivery O2 Flow Rate FiO2 07/27/20 02:00 36.5 98 18 102/55 (71) 97 Room Air 07/26/20 20:21 37.1 79 18 100/56 (71) 97 Room Air 07/26/20 14:00 36.5 81 18 114/52 (72) 97 Room Air MANDY MUNGUIA DO July 27, 2020 08:24
[2020-07-27] MEDS: DOCUSATE SODIUM 100 MG (COLACE) CAP PO SCH (09:30)
[2020-07-27 13:35] VITALS: BP 107/68
[2020-07-27 16:00] VITALS: BP 107/68
== END 2020-07-27 16:00 | disposition home or self-care (01) | DRG 787 ==
LOC: LDRP 07:14
PROVIDERS: ADMIT Obstetrics & Gynecology; ATTEND Obstetrics & Gynecology
PROC: 10D00Z1 Extraction of Products of Conception, Low, Open Approach (ICD-10-PCS; principal; 2020-07-25 08:50)
DX: O30.043 Twin pregnancy, dichorionic/diamniotic, third trimester (principal); D62 Acute posthemorrhagic anemia; O64.8XX1 Obstructed labor due to other malposition and malpresentation, fetus 1; O64.8XX2 Obstructed labor due to other malposition and malpresentation, fetus 2; O90.81 Anemia of the puerperium; Z37.2 Twins, both liveborn; Z3A.37 37 weeks gestation of pregnancy; Z23 Encounter for immunization; Z88.0 Allergy status to penicillin
CPT/HCPCS: 36415; 85025; 86850; 86900; 86901; 90715; 94664